=== PATIENT | female | born 1995 | race Caucasian/White ===

== ENCOUNTER 2025-02-22 22:20 | Emergency (ER) | payer SELFPAY ==
[2025-02-22 22:26] VITALS: BP 124/64; PULSE 76; RESP 18; TEMP 99.3; BMI 34.0
== END 2025-02-23 00:25 | disposition home or self-care (01) ==
LOC: JER 22:20 → JERFT 22:20 → JER 02-23 00:25
PROC: 0HQFXZZ Repair Right Hand Skin, External Approach (ICD-10-PCS; principal; 2025-02-22)
DX: S61.011A Laceration without foreign body of right thumb without damage to nail, initial encounter (principal); W25.XXXA Contact with sharp glass, initial encounter; Y99.0 Civilian activity done for income or pay
CPT/HCPCS: 99283-25

== ENCOUNTER 2025-05-29 23:01 | Emergency (ER) | payer OTHER ==
[2025-05-29 23:08] VITALS: BP 106/61; PULSE 78; RESP 18; TEMP 99; BMI 29.4
[2025-05-30 01:33] LABS: ABSOLUTE IMMATURE GRANULOCYTES 0.05 x10^3/uL (0.0-0.031); BASOPHILS # 0.05 x10^3/uL (0.01-0.08); EOSINOPHIL % 2.6 % (0.7-5.8); EOSINOPHILS # 0.33 x10^3/uL (0.04-0.36); MCHC 33.3 g/dl (32.2-35.5); MEAN CELL VOLUME 90.2 fl (79.4-94.8); MEAN PLT VOLUME 9.4 fl (9.4-12.3); MONOCYTE # 0.80 x10^3/uL (0.24-0.86); MONOCYTE % 6.2 % (4.7-12.5); RDW 12.6 % (12.1-16.5)
[2025-05-30 01:50] LABS: GLUCOSE,RANDOM 85.0 mg/dL (74-106); TOT PROT 6.9 g/dl (6.4-8.2)
[2025-05-30 01:51] LABS: CO2 19.0 mmol/L (21-32)
[2025-05-30 01:53] LABS: ALK PHOS 90.0 U/L (40-150)
[2025-05-30 01:55] LABS: SGOT/AST 20.0 U/L (5-34); SGPT/ALT 13.0 U/L (0-55)
[2025-05-30 01:56] LABS: CREATININE 0.55 mg/dL (0.55-1.3)
[2025-05-30] MEDS ORDERED: ACETAMINOPHEN 325 MG TABLET (FP) ONE (01:56)
[2025-05-30] MEDS: ACETAMINOPHEN 325 MG TABLET (FP) PO ONE (02:10)
[2025-05-30 03:48] LABS: HIV INTERPRETATION NEGATIVE (NEGATIVE)
[2025-05-30 03:49] LABS: HCV DIAGNOSTIC IN-HOUSE W/RFLX NON-REACTIVE (NONREACTIVE)
== END 2025-05-30 03:25 | disposition home or self-care (01) ==
LOC: JER 23:01
DX: O20.9 Hemorrhage in early pregnancy, unspecified (principal); O26.891 Other specified pregnancy related conditions, first trimester; R10.84 Generalized abdominal pain; R11.0 Nausea; Z3A.00 Weeks of gestation of pregnancy not specified
CPT/HCPCS: 36415; 76817-TC; 80053; 84702; 84703; 85025; 86803; 86850; 86900; 86901; 87389; 99284-25